=== PATIENT | female | born 1980 | race Caucasian/White ===

== ENCOUNTER 2016-11-28 20:17 | Emergency (ER) | payer MEDICAID ==
[2016-11-28 20:32] VITALS: BP 166/95
[2016-11-28] MEDS ORDERED: diphenhydrAMINE 50 MG/ML SDV IVPUSH STA ×2 (21:54→23:27)
[2016-11-28] MEDS ORDERED: Ketorolac 60 MG/2 ML SDV IM ONE (21:54)
[2016-11-28] MEDS ORDERED: Sodium Chloride 0.9% 1,000 ML IV SCH (22:00)
[2016-11-28] MEDS ORDERED: Dexamethasone 4 MG/ML SDV IVPUSH ONE (23:27)
--- NOTE | 2016-11-28 23:36 | EDM.PDOC ---
ED HPI GENERAL MEDICAL PROBLEM - General Chief Complaint: Upper Extremity Injury/Pain Stated Complaint: PAIN IN LEFT SHOULDER Time Seen by Provider: 11/28/16 21:34 Source of Information: Reports: Patient History Limitations: Reports: No Limitations - History of Present Illness INITIAL COMMENTS - FREE TEXT/NARRATIVE: History of present illness: [36-year-old female presenting with severe neck pain and left shoulder pain so much so that when he walked into the room she was riding on the floor and had been hollering out and disrupting the ER. She has been seeing Dr. Shirley who is a neurosurgeon leg given her a Medrol Dosepak but she has not taken it as she is afraid to that she read some things about steroids on the Internet that scared her. I been able to obtain medical records and MRI reports regarding her neck and she does have cervical spinal stenosis and as far as I can determine Dr. Shirley may consider surgery but wants to try steroids orally and steroid injections and then if these do not work he would consider surgery. The pain that she's having in her shoulder seems to radiate from her neck and then go down her arm. It was exacerbated as a result of her pulling weeds out of her garden this weekend. She is here with her boyfriend and has a 9-year-old daughter that her adenosine care. She's been to the [facility] and the [facility] ER and feels like she's been getting the run around his frustration for her pain. Y. begin talking to her about taking narcotic she immediately sat up in bed and said no I don't want and I'm afraid to take narcotics. She alleges she does not have a history of addiction and has not been through treatment for drugs or alcohol.] Review of systems: As per history of present illness and below otherwise all systems reviewed and negative. Past medical history: As per history of present illness and as reviewed below otherwise noncontributory. Surgical history: As per history of present illness and as reviewed below otherwise noncontributory. Social history: No reported history of drug or alcohol abuse. Family history: As per history of present illness and as reviewed below otherwise noncontributory. Physical exam: HEENT: Atraumatic, normocephalic, pupils reactive, negative for conjunctival pallor or scleral icterus, mucous membranes moist, throat clear, neck supple, nontender, trachea midline. Lungs: Clear to auscultation, breath sounds equal bilaterally, chest nontender. Heart: S1S2, regular, negative for clicks, rubs, or JVD. Abdomen: Soft, nondistended, nontender. Negative for masses or hepatosplenomegaly. Negative for costovertebral tenderness. Pelvis: Stable nontender. Genitourinary: Deferred. Rectal: Deferred. Extremities: On inspection and examination of the left shoulder and comparing it to the right shoulder is seen no asymmetry there is no erythema there is no swelling or warmth there is full range of motion without crepitations. Her neck exam shows some discomfort on palpation diffusely posteriorly and she does seem to have limited range of motion of her neck. Neuro: Awake, alert, oriented. Cranial nerves II through XII unremarkable. Cerebellum unremarkable. Motor and sensory unremarkable throughout. Exam nonfocal. Diagnostics: [EKG was done and was normal her QT interval was 388. Urine drug screen was obtained and did show normal polysubstances in her urine. I confronted her about these and the only one that she would admit to his marijuana otherwise she denies taking the other medications the shoulder in her urine drug screen and it is possible there may be some cross-reactivity from [id number] medications or other things that she may be taking.] Therapeutics: [She received IV fluids IV Toradol and IV Benadryl and I did give her 4 mg of Decadron and she seemed to improve with this and was aged to go home.] Impression: [Cervical spinal stenosis with radiculopathy] Plan: [I'm encouraging her to follow through with Dr. Hidalgo and take the Medrol Dosepak that was prescribed for her and she can followup here when necessary] Definitive disposition and diagnosis as appropriate pending reevaluation and review of above. Left Shoulder Pain Score (Numeric/FACES): 10 - Related Data Allergies Allergy/AdvReac Type Severity Reaction Status Date / Time No Known Allergies Allergy Verified 01/31/14 07:24 Home Meds: Home Meds Cyclobenzaprine [Flexeril] 5 - 10 mg PO QID PRN 11/28/16 [History] Diclofenac Sodium [Diclofenac Sodium ER] 11/28/16 [History] Gabapentin [Neurontin] 300 mg PO QID 11/28/16 [History] Lisinopril 11/28/16 [History] Omeprazole 11/28/16 [History] Past Medical History Cardiovascular History: Reports: Hypertension [employer] SE[employer]ING [employer]IST History: Reports: Social & Family History - Tobacco Use Smoking Status *Q: Heavy Tobacco Smoker Years of Tobacco use: 12 Packs/Tins Daily: 1 Used Tobacco, but Quit: No Second Hand Smoke Exposure: No - Caffeine Use Caffeine Use: Reports: Coffee, Soda - Alcohol Use Days Per Week of Alcohol Use: 0 - Recreational Drug Use Recreational Drug Use: No Review of Systems - Review of Systems Review Of Systems: ROS reveals no pertinent complaints other than HPI. Trauma Exam - Physical Exam Exam: See Below Course - Vital Signs Last Recorded V/S: Last Vital Signs Temp 36.5 C 11/28/16 20:37 Pulse 90 11/28/16 20:37 Resp 24 H 11/28/16 20:37 BP 166/95 H 11/28/16 20:37 Pulse Ox 99 11/28/16 20:37 - Orders/Labs/Meds Orders: Active Orders 24 hr Category Date Time Status EKG Documentation Completion [RC] ASDIRECTED Care 11/28/16 21:52 Active Sodium Chloride 0.9% [Normal Saline] 1,000 ml Med 11/28/16 22:00 Active IV ASDIRECTED EKG 12 Lead [EK] Stat Ther 11/28/16 21:51 Ordered Medication Orders Sodium Chloride (Normal Saline) 1,000 mls @ 250 mls/hr IV ASDIRECTED ELISA Last Admin: 11/28/16 22:09 Dose: 250 mls/hr Labs: Laboratory Tests 11/28/16 11/28/16 11/28/16 Range/Units 21:52 21:52 21:52 WBC 14.1 H (4.5-11.0) K/uL RBC 4.68 (3.30-5.50) M/uL Hgb 14.3 (12.0-15.0) g/dL Hct 40.6 (36.0-48.0) % MCV 87 (80-98) fL MCH 31 (27-31) pg MCHC 35 (32-36) % Plt Count 326 (150-400) K/uL Neut % (Auto) 66 (36-66) % Lymph % (Auto) 24 (24-44) % [place] % (Auto) 7 H (2-6) % Eos % (Auto) 2 (2-4) % Baso % (Auto) 0 (0-1) % ESR 15 (0-25) mm/hr Sodium 140 (140-148) mmol/L Potassium 3.9 (3.6-5.2) mmol/L Chloride 105 (100-108) mmol/L Carbon Dioxide 25 (21-32) mmol/L Anion Gap 10.4 (5.0-14.0) mmol/L BUN 28 H (7-18) mg/dL Creatinine 1.0 (0.6-1.0) mg/dL Est Cr Clr Drug Dosing 79.21 mL/min Estimated GFR (MDRD) > 60 (>60) Glucose 108 H (74-106) mg/dL Lactic Acid 1.1 (0.4-2.0) mmol/L Calcium 8.9 (8.5-10.1) mg/dL Total Bilirubin 0.4 (0.2-1.0) mg/dL AST 15 (15-37) U/L ALT 25 (12-78) U/L Alkaline Phosphatase 93 (46-116) U/L Creatine Kinase 72 (26-192) U/L C-Reactive Protein 0.35 H (0.0-0.3) mg/dL Total Protein 7.3 (6.4-8.2) g/dL Albumin 3.7 (3.4-5.0) g/dL Globulin 3.6 H (2.3-3.5) g/dL Albumin/Globulin Ratio 1.0 L (1.2-2.2) Urine Color Urine Appearance Urine pH (4.5-8.0) Ur Specific [place] (1.008-1.030) Urine Protein (NEGATIVE) mg/dL Urine Glucose (UA) (NEGATIVE) mg/dL Urine Ketones (NEGATIVE) mg/dL Urine Occult Blood (NEGATIVE) Urine Nitrite (NEGATIVE) Urine Bilirubin (NEGATIVE) Urine Urobilinogen (NORMAL) mg/dL Ur Leukocyte Esterase (NEGATIVE) Urine RBC (0-5) Urine WBC (0-5) Ur Epithelial Cells Amorphous Sediment Urine Bacteria Urine Mucus Urine HCG, Qual Urine Opiates Screen (NEGATIVE) Ur Oxycodone Screen (NEGATIVE) Urine Methadone Screen (NEGATIVE) Ur Propoxyphene Screen (NEGATIVE) Ur Barbiturates Screen (NEGATIVE) Ur Tricyclics Screen (NEGATIVE) Ur Phencyclidine Scrn (NEGATIVE) Ur Amphetamine Screen (NEGATIVE) U Methamphetamines Scrn (NEGATIVE) Urine MDMA Screen (NEGATIVE) U Benzodiazepines Scrn (NEGATIVE) U Cocaine Metab Screen (NEGATIVE) U Marijuana (THC) Screen (NEGATIVE) Ethyl Alcohol mg/dL 11/28/16 11/28/16 11/28/16 Range/Units 21:52 22:29 22:29 WBC (4.5-11.0) K/uL RBC (3.30-5.50) M/uL Hgb (12.0-15.0) g/dL Hct (36.0-48.0) % MCV (80-98) fL MCH (27-31) pg MCHC (32-36) % Plt Count (150-400) K/uL Neut % (Auto) (36-66) % Lymph % (Auto) (24-44) % [place] % (Auto) (2-6) % Eos % (Auto) (2-4) % Baso % (Auto) (0-1) % ESR (0-25) mm/hr Sodium (140-148) mmol/L Potassium (3.6-5.2) mmol/L Chloride (100-108) mmol/L Carbon Dioxide (21-32) mmol/L Anion Gap (5.0-14.0) mmol/L BUN (7-18) mg/dL Creatinine (0.6-1.0) mg/dL Est Cr Clr Drug Dosing mL/min Estimated GFR (MDRD) (>60) Glucose (74-106) mg/dL Lactic Acid (0.4-2.0) mmol/L Calcium (8.5-10.1) mg/dL Total Bilirubin (0.2-1.0) mg/dL AST (15-37) U/L ALT (12-78) U/L Alkaline Phosphatase (46-116) U/L Creatine Kinase (26-192) U/L C-Reactive Protein (0.0-0.3) mg/dL Total Protein (6.4-8.2) g/dL Albumin (3.4-5.0) g/dL Globulin (2.3-3.5) g/dL Albumin/Globulin Ratio (1.2-2.2) Urine Color Yellow Urine Appearance Clear Urine pH 7.0 (4.5-8.0) Ur Specific [place] 1.015 (1.008-1.030) Urine Protein Negative (NEGATIVE) mg/dL Urine Glucose (UA) Normal (NEGATIVE) mg/dL Urine Ketones Negative (NEGATIVE) mg/dL Urine Occult Blood Negative (NEGATIVE) Urine Nitrite Negative (NEGATIVE) Urine Bilirubin Negative (NEGATIVE) Urine Urobilinogen Normal (NORMAL) mg/dL Ur Leukocyte Esterase Negative (NEGATIVE) Urine RBC 0-5 (0-5) Urine WBC 0-5 (0-5) Ur Epithelial Cells Many Amorphous Sediment Few Urine Bacteria Not seen Urine Mucus Not seen Urine HCG, Qual Negative Urine Opiates Screen (NEGATIVE) Ur Oxycodone Screen (NEGATIVE) Urine Methadone Screen (NEGATIVE) Ur Propoxyphene Screen (NEGATIVE) Ur Barbiturates Screen (NEGATIVE) Ur Tricyclics Screen (NEGATIVE) Ur Phencyclidine Scrn (NEGATIVE) Ur Amphetamine Screen (NEGATIVE) U Methamphetamines Scrn (NEGATIVE) Urine MDMA Screen (NEGATIVE) U Benzodiazepines Scrn (NEGATIVE) U Cocaine Metab Screen (NEGATIVE) U Marijuana (THC) Screen (NEGATIVE) Ethyl Alcohol < 3 mg/dL 11/28/16 Range/Units 22:29 WBC (4.5-11.0) K/uL RBC (3.30-5.50) M/uL Hgb (12.0-15.0) g/dL Hct (36.0-48.0) % MCV (80-98) fL MCH (27-31) pg MCHC (32-36) % Plt Count (150-400) K/uL Neut % (Auto) (36-66) % Lymph % (Auto) (24-44) % [place] % (Auto) (2-6) % Eos % (Auto) (2-4) % Baso % (Auto) (0-1) % ESR (0-25) mm/hr Sodium (140-148) mmol/L Potassium (3.6-5.2) mmol/L Chloride (100-108) mmol/L Carbon Dioxide (21-32) mmol/L Anion Gap (5.0-14.0) mmol/L BUN (7-18) mg/dL Creatinine (0.6-1.0) mg/dL Est Cr Clr Drug Dosing mL/min Estimated GFR (MDRD) (>60) Glucose (74-106) mg/dL Lactic Acid (0.4-2.0) mmol/L Calcium (8.5-10.1) mg/dL Total Bilirubin (0.2-1.0) mg/dL AST (15-37) U/L ALT (12-78) U/L Alkaline Phosphatase (46-116) U/L Creatine Kinase (26-192) U/L C-Reactive Protein (0.0-0.3) mg/dL Total Protein (6.4-8.2) g/dL Albumin (3.4-5.0) g/dL Globulin (2.3-3.5) g/dL Albumin/Globulin Ratio (1.2-2.2) Urine Color Urine Appearance Urine pH (4.5-8.0) Ur Specific [place] (1.008-1.030) Urine Protein (NEGATIVE) mg/dL Urine Glucose (UA) (NEGATIVE) mg/dL Urine Ketones (NEGATIVE) mg/dL Urine Occult Blood (NEGATIVE) Urine Nitrite (NEGATIVE) Urine Bilirubin (NEGATIVE) Urine Urobilinogen (NORMAL) mg/dL Ur Leukocyte Esterase (NEGATIVE) Urine RBC (0-5) Urine WBC (0-5) Ur Epithelial Cells Amorphous Sediment Urine Bacteria Urine Mucus Urine HCG, Qual Urine Opiates Screen Negative (NEGATIVE) Ur Oxycodone Screen Negative (NEGATIVE) Urine Methadone Screen Negative (NEGATIVE) Ur Propoxyphene Screen Negative (NEGATIVE) Ur Barbiturates Screen Negative (NEGATIVE) Ur Tricyclics Screen Positive H (NEGATIVE) Ur Phencyclidine Scrn Negative (NEGATIVE) Ur Amphetamine Screen Positive H (NEGATIVE) U Methamphetamines Scrn Positive H (NEGATIVE) Urine MDMA Screen Negative (NEGATIVE) U Benzodiazepines Scrn Positive H (NEGATIVE) U Cocaine Metab Screen Negative (NEGATIVE) U Marijuana (THC) Screen Positive H (NEGATIVE) Ethyl Alcohol mg/dL Meds: Medications Generic Name Dose Route Start Last Admin Trade Name Freq PRN Reason Stop Dose Admin Sodium Chloride 1,000 mls @ 250 mls/hr 11/28/16 22:00 11/28/16 22:09 Normal Saline IV 250 mls/hr ASDIRECTED ELISA Administration Discontinued Medications Generic Name Dose Route Start Last Admin Trade Name Freq PRN Reason Stop Dose Admin Dexamethasone 4 mg 11/28/16 23:27 Dexamethasone IVPUSH 11/28/16 23:28 ONETIME ONE Diphenhydramine HCl 25 mg 11/28/16 21:54 11/28/16 22:11 Benadryl IVPUSH 11/28/16 21:55 25 mg NOW STA Administration Diphenhydramine HCl 25 mg 11/28/16 23:27 Benadryl IVPUSH 11/28/16 23:28 NOW STA Ketorolac Tromethamine 30 mg 11/28/16 21:54 11/28/16 21:58 Toradol IM 11/28/16 21:55 30 mg ONETIME ONE Administration Departure - Departure Time of Disposition: 23:36 Disposition: Home, Self-Care 01 Condition: fair Clinical Impression: Cervical spinal stenosis - Discharge Information Forms: ED Department Discharge Additional Instructions: Please take the medication that Dr. Hidalgo is prescribed for you as it was prescribed and followup with him as you are planning to do. I believe he has a good plan to try to help you. - My Orders Last 24 Hours: My Active Orders 11/28/16 21:51 EKG 12 Lead [EK] Stat 11/28/16 21:52 EKG Documentation Completion [RC] ASDIRECTED 11/28/16 22:00 Sodium Chloride 0.9% [Normal Saline] 1,000 ml IV ASDIRECTED - Assessment/Plan Last 24 Hours: My Active Orders 11/28/16 21:51 EKG 12 Lead [EK] Stat 11/28/16 21:52 EKG Documentation Completion [RC] ASDIRECTED 11/28/16 22:00 Sodium Chloride 0.9% [Normal Saline] 1,000 ml IV ASDIRECTED
== END 2016-11-28 23:55 | disposition home or self-care (01) ==
LOC: JP.ED 20:17
DX: M48.02 Spinal stenosis, cervical region (principal); I10 Essential (primary) hypertension; F17.210 Nicotine dependence, cigarettes, uncomplicated; Z79.899 Other long term (current) drug therapy
CPT/HCPCS: 36415; 80053; 80305; 81001; 81025; 82550; 83605; 85025; 85651; 86140; 93005; 96361; 96374; 96375; 96376; 99284; G0480; J1100; J1200; J1885; J7040